=== PATIENT | male | born 1940 | race American Indian/Alaskan Native ===

== ENCOUNTER 2017-05-11 02:48 | Emergency (ER) | payer MEDICARE ==
[2017-05-11 04:03] LABS: Eosinophils % (Auto) 4.6 % (0.0-4.3); Hematocrit 39.3 % (35.5-45.6); Hemoglobin 13.5 gm/dl (11.8-15.2); Mean Corpuscular HGB Conc 34 % (32-34); Mean Corpuscular Hemoglobin 32 pg (28-32); Mean Corpuscular Volume 94 fl (84-94); Platelet Count 183 K/mm3 (140-440); Red Blood Count 4.18 M/mm3 (3.65-5.03); Red Cell Distribution Width 12.6 % (13.2-15.2); White Blood Count 4.4 K/mm3 (4.5-11.0)
[2017-05-11 04:16] LABS: Anion Gap 16 mmol/L; Blood Urea Nitrogen 9 mg/dL (9-20); Calcium 8.5 mg/dL (8.4-10.2); Carbon Dioxide 30 mmol/L (22-30); Chloride 99.9 mmol/L (98-107); Glucose 67 mg/dL (75-100); Potassium 3.8 mmol/L (3.6-5.0); Sodium 142 mmol/L (137-145)
--- NOTE | 2017-05-11 07:58 | Emergency Department Report ---
ED Lower Extremity HPI - General Chief Complaint: Wound/Laceration Stated Complaint: RT TOE PAIN Time Seen by Provider: 05/11/17 07:17 Source: patient, family Mode of arrival: Ambulatory Limitations: No Limitations - History of Present Illness Initial Comments: 77-year-old male past medical history arthritis, GERD, high cholesterol, dementia brought in by girlfriend for complaint of one month of pain between his first and second right side toes. Patient on exam is awake alert and oriented 3 cooperative able to tell me that for 1 month he has had pain between his first and second toes and has noticed thick callus skin. States he has had bunion surgery in the past. States that he wears tight fitting shoes. As his supported by his girlfriend who is at bedside who states that he has complained of pain in his toes chronically. Denies any fever or chills denies any pus drainage no difficulty ambulating. States he has not taken any medicines for the pain. States it only bothers him when he walks for a prolonged period of time. MD Complaint: foot injury Onset/Timin -: month(s) Injury: Toes: Right Severity: mild Severity scale (0 -10): 2 - Related Data Home Medications Medication Instructions Recorded Confirmed Last Taken Esomeprazole Magnesium [NexIUM] 1 cap PO DAILY 07/16/14 09/11/14 09/10/14 Levothyroxine [Synthroid] 1 tab PO DAILY 07/16/14 09/11/14 09/10/14 09:00 I TAB Rivastigmine [Exelon Patch 1 patch TRANSDERMA DAILY 07/16/14 09/11/14 09/10/14 9.5mg/24hr] Tamsulosin [Flomax] 1 cap PO DAILY 07/16/14 09/11/14 09/09/14 Tadalafil [Cialis] 1 tab PO PRN PRN 07/17/14 09/11/14 09/09/14 oxyCODONE /ACETAMINOPHEN [Percocet 5 - 325 mg PO Q6H PRN 07/17/14 09/11/1409/09 5/325 mg] Previous Rx's Medication Instructions Recorded Last Taken Type Acetaminophen [Acetaminophen TAB] 500 mg PO Q8H PRN #30 tablet 05/11/17 Unknown Rx Menthol [Gold [place] Medicated Foot] 10 gm TP BID #1 powder 05/11/17 Unknown Rx Allergies Allergy/AdvReac Type Severity Reaction Status Date / Time No Known Allergies Allergy Verified 05/11/17 03:03 ED Review of Systems ROS: Stated complaint: RT TOE PAIN Other details as noted in HPI Constitutional: denies: chills, fever Eyes: denies: eye pain, eye discharge, vision change ENT: denies: ear pain, throat pain Respiratory: denies: cough, shortness of breath, wheezing Cardiovascular: denies: chest pain, palpitations Endocrine: no symptoms reported Gastrointestinal: denies: abdominal pain, nausea, diarrhea Genitourinary: denies: urgency, dysuria Musculoskeletal: denies: back pain, joint swelling, arthralgia Skin: as per HPI. denies: rash, lesions Neurological: denies: headache, weakness, paresthesias Psychiatric: denies: anxiety, depression Hematological/Lymphatic: denies: easy bleeding, easy bruising ED Past Medical Hx - Past Medical History Hx Hypertension: Yes (NO MEDS AT THIS TIME) Hx GERD: Yes Hx Arthritis: Yes Hx Dementia: Yes Additional medical history: Hypercholesterolemia - Surgical History Past Surgical History?: Yes Additional Surgical History: hernia repair - Social History Smoking Status: Current Every Day Smoker Substance Use Type: Alcohol - Medications Home Medications: Home Medications Medication Instructions Recorded Confirmed Last Taken Type Esomeprazole Magnesium [NexIUM] 1 cap PO DAILY 07/16/14 09/11/14 09/10/14 History Levothyroxine [Synthroid] 1 tab PO DAILY 07/16/14 09/11/14 09/10/14 09:00 History I TAB Rivastigmine [Exelon Patch 1 patch TRANSDERMA DAILY 07/16/14 09/11/14 09/10/14 History 9.5mg/24hr] Tamsulosin [Flomax] 1 cap PO DAILY 07/16/14 09/11/14 09/09/14 History Tadalafil [Cialis] 1 tab PO PRN PRN 07/17/14 09/11/14 09/09/14 History oxyCODONE /ACETAMINOPHEN [Percocet 5 - 325 mg PO Q6H PRN 07/17/14 09/11/1409/09 History 5/325 mg] Acetaminophen [Acetaminophen TAB] 500 mg PO Q8H PRN #30 tablet 05/11/17 Unknown Rx Menthol [Gold [place] Medicated Foot] 10 gm TP BID #1 powder 05/11/17 Unknown Rx ED Physical Exam - General Limitations: No Limitations General appearance: alert, in no apparent distress - Head Head exam: Present: atraumatic, normocephalic - Eye Eye exam: Present: normal appearance, PERRL, EOMI - ENT ENT exam: Present: mucous membranes moist - Neck Neck exam: Present: normal inspection - Respiratory Respiratory exam: Present: normal lung sounds bilaterally. Absent: respiratory distress - Cardiovascular Cardiovascular Exam: Present: regular rate, normal rhythm. Absent: systolic murmur, diastolic murmur, rubs, gallop - GI/Abdominal GI/Abdominal exam: Present: soft, normal bowel sounds - Rectal Rectal exam: Present: deferred - Extremities Exam Extremities exam: Present: normal inspection - Expanded Lower Extremity Exam Right Upper Leg exam: Present: normal inspection, full ROM Knee exam: Present: normal inspection, full ROM Lower Leg exam: Present: normal inspection, full ROM Ankle exam: Present: normal inspection, full ROM Foot/Toe exam: Present: full ROM (range of motion toes intact), deformity ( visible bunion right great toe) Neuro vascular tendon exam: Present: no vascular compromise Gait: Positive: observed and normal 1 - Area of calloused skin, no abscess, no cellulitis, no erythema, not painful to touch. - Back Exam Back exam: Present: normal inspection - Neurological Exam Neurological exam: Present: alert, oriented X3 - Psychiatric Psychiatric exam: Present: normal affect, normal mood - Skin Skin exam: Present: warm, dry, intact, normal color. Absent: rash ED Course Vital Signs 05/11/17 03:03 Temperature 97.9 F Pulse Rate 75 Respiratory 16 Rate Blood Pressure 132/60 O2 Sat by Pulse 100 Oximetry ED Lower Extremity MDM - Lab Data Result diagrams: 05/11/17 03:39 05/11/17 03:39 - Medical Decision Making A/P: Bunion right toe, skin callus 1-podiatry referral. I placed a cushion gauze between toes with light patricia wrap for bracing for comfort 2-I advised patient to use medicated foot powder and to keep his feet dry and wear comfortable shoes with good support or sneakers instead of tight fitting shoes with rigid soles patient states he typically wears. 3- clinically there are no signs of infection on direct examination of toes, no cellulitis no abscess no hyperesthesia to touch, range of motion is intact and distal sensation is intact. good distal cap refill less than 1 second and good distal sensation all toes. 4- pt is ambulatory 5- Tylenol when necessary Critical care attestation.: If time is entered above; I have spent that time in minutes in the direct care of this critically ill patient, excluding procedure time. ED Disposition Clinical Impression: Bunion of great toe of right foot, Skin callus Disposition: TO HOME OR SELFCARE Is pt being admited?: No Does the pt Need Aspirin: No Condition: Stable Instructions: Bunion (ED) Prescriptions: Acetaminophen [Acetaminophen TAB] 500 mg PO Q8H PRN #30 tablet PRN Reason: Pain Menthol [Gold [place] Medicated Foot] 10 gm TP BID #1 powder Referrals: SHIRLEY COOK DPM [Staff Physician] - 3-5 Days [facility] [Provider Group] - 3-5 Days Forms: Accompanied Note, Work/School Release Form(ED) Time of Disposition: 08:03
[2017-05-11] MEDS ORDERED: TYLENOL PO ONE (08:05)
[2017-05-11 08:27] VITALS: BP 104/63
== END 2017-05-11 08:25 | disposition home or self-care (01) ==
LOC: ED 02:48
DX: M21.611 Bunion of right foot (principal); L84 Corns and callosities; I10 Essential (primary) hypertension; K21.9 Gastro-esophageal reflux disease without esophagitis; M19.90 Unspecified osteoarthritis, unspecified site; F03.90 Unspecified dementia, unspecified severity, without behavioral disturbance, psychotic disturbance, mood disturbance, and anxiety; E78.00 Pure hypercholesterolemia, unspecified; F17.200 Nicotine dependence, unspecified, uncomplicated
CPT/HCPCS: 36415; 80048; 82962; 85025; 99283

== ENCOUNTER 2018-07-15 00:06 | Emergency (ER) | payer MEDICARE ==
--- NOTE | 2018-07-15 01:07 | Emergency Department Report ---
ED Back Pain/Injury HPI - General Chief Complaint: Back Pain/Injury Stated Complaint: LOWER BACK PAIN Time Seen by Provider: 07/15/18 00:27 Source: patient, EMS Limitations: Physical Limitation - History of Present Illness Initial Comments: 78-year-old male presents to ED with complaints of right-sided low back pain 2 days. He denies recent fall, injury, lifting of heavy objects. Pain worse with twisting of torso, bending. Patient states he had a family member flip his mattress to see if that would improve the pain. It did not. Pt has not taken anything for pain at home. Patient denies fever, chills, dysuria, numbness, tingling, extremity weakness. Does report urinary frequency. PCP: Krys Roth MD Complaint: back pain -: Gradual, days(s) (2) Similar Symptoms Previously: No Radiation: none Severity: severe Quality: sharp, aching Consistency: constant Improves With: immobilization Worsens With: movement, walking Context: unknown Associated Symptoms: denies: weakness, numbness, difficulty urinating, incontinence, fever/chills, abdominal pain, nausea/vomiting - Related Data Home Medications Medication Instructions Recorded Confirmed Last Taken Esomeprazole Magnesium [NexIUM] 1 cap PO DAILY 07/16/14 09/11/14 09/10/14 Levothyroxine [Synthroid] 1 tab PO DAILY 07/16/14 09/11/14 09/10/14 09:00 I TAB Rivastigmine [Exelon Patch 1 patch TRANSDERMA DAILY 07/16/14 09/11/14 09/10/14 9.5mg/24hr] Tamsulosin [Flomax] 1 cap PO DAILY 07/16/14 09/11/14 09/09/14 Tadalafil [Cialis] 1 tab PO PRN PRN 07/17/14 09/11/14 09/09/14 oxyCODONE /ACETAMINOPHEN [Percocet 5 - 325 mg PO Q6H PRN 07/17/14 09/11/1409/09 5/325 mg] Previous Rx's Medication Instructions Recorded Last Taken Type Acetaminophen [Acetaminophen TAB] 500 mg PO Q8H PRN #30 tablet 05/11/17 Unknown Rx Menthol [Gold [place] Medicated Foot] 10 gm TP BID #1 powder 05/11/17 Unknown Rx Methocarbamol [Robaxin-750] 500 mg PO Q6HR PRN #20 tablet 07/15/18 Unknown Rx Naproxen [Naprosyn] 500 mg PO BID #20 tablet 07/15/18 Unknown Rx Allergies Allergy/AdvReac Type Severity Reaction Status Date / Time No Known Allergies Allergy Verified 05/11/17 03:03 ED Review of Systems ROS: Stated complaint: LOWER BACK PAIN Other details as noted in HPI Comment: All other systems reviewed and negative Constitutional: denies: chills, fever Cardiovascular: denies: chest pain Gastrointestinal: denies: abdominal pain, nausea, vomiting Genitourinary: frequency. denies: dysuria Neurological: denies: weakness, numbness, paresthesias ED Past Medical Hx - Past Medical History Hx Hypertension: Yes (NO MEDS AT THIS TIME) Hx GERD: Yes Hx Arthritis: Yes Hx Dementia: Yes Additional medical history: Hypercholesterolemia - Surgical History Additional Surgical History: hernia repair - Social History Smoking Status: Current Every Day Smoker Substance Use Type: None - Medications Home Medications: Home Medications Medication Instructions Recorded Confirmed Last Taken Type Esomeprazole Magnesium [NexIUM] 1 cap PO DAILY 07/16/14 09/11/14 09/10/14 History Levothyroxine [Synthroid] 1 tab PO DAILY 07/16/14 09/11/14 09/10/14 09:00 History I TAB Rivastigmine [Exelon Patch 1 patch TRANSDERMA DAILY 07/16/14 09/11/14 09/10/14 History 9.5mg/24hr] Tamsulosin [Flomax] 1 cap PO DAILY 07/16/14 09/11/14 09/09/14 History Tadalafil [Cialis] 1 tab PO PRN PRN 07/17/14 09/11/14 09/09/14 History oxyCODONE /ACETAMINOPHEN [Percocet 5 - 325 mg PO Q6H PRN 07/17/14 09/11/1409/09 History 5/325 mg] Acetaminophen [Acetaminophen TAB] 500 mg PO Q8H PRN #30 tablet 05/11/17 Unknown Rx Menthol [Gold [place] Medicated Foot] 10 gm TP BID #1 powder 05/11/17 Unknown Rx Methocarbamol [Robaxin-750] 500 mg PO Q6HR PRN #20 tablet 07/15/18 Unknown Rx Naproxen [Naprosyn] 500 mg PO BID #20 tablet 07/15/18 Unknown Rx ED Physical Exam - General Limitations: Physical Limitation General appearance: alert, in no apparent distress - Head Head exam: Present: atraumatic, normocephalic - Eye Eye exam: Present: normal appearance - ENT ENT exam: Present: mucous membranes moist - Neck Neck exam: Present: normal inspection, full ROM - Respiratory Respiratory exam: Present: normal lung sounds bilaterally. Absent: respiratory distress - Cardiovascular Cardiovascular Exam: Present: regular rate, normal rhythm - GI/Abdominal GI/Abdominal exam: Present: soft. Absent: tenderness - Extremities Exam Extremities exam: Present: normal inspection. Absent: tenderness - Back Exam Back exam: Present: normal inspection, paraspinal tenderness (right sided near L4-5). Absent: full ROM, vertebral tenderness - Neurological Exam Neurological exam: Present: alert, oriented X3. Absent: motor sensory deficit - Psychiatric Psychiatric exam: Present: normal affect, normal mood - Skin Skin exam: Present: warm, dry, intact, normal color ED Course Vital Signs 07/15/18 07/15/18 07/15/18 00:18 00:20 00:30 Temperature 98 F Pulse Rate 68 62 Respiratory 18 14 Rate Blood Pressure 145/49 135/57 O2 Sat by Pulse 98 100 99 Oximetry 07/15/18 07/15/18 07/15/18 00:33 00:45 01:00 Temperature Pulse Rate 62 74 Respiratory 18 14 14 Rate Blood Pressure 135/59 135/57 O2 Sat by Pulse 99 99 Oximetry 07/15/18 07/15/18 07/15/18 01:15 02:05 02:15 Temperature Pulse Rate 63 61 60 Respiratory 15 18 Rate Blood Pressure 128/61 137/68 137/62 O2 Sat by Pulse 99 100 99 Oximetry 07/15/18 07/15/18 07/15/18 02:30 02:45 03:00 Temperature Pulse Rate 57 L 67 57 L Respiratory 13 15 14 Rate Blood Pressure 144/65 159/72 137/66 O2 Sat by Pulse 100 100 99 Oximetry 07/15/18 07/15/18 07/15/18 03:15 03:30 03:45 Temperature Pulse Rate 56 L 61 63 Respiratory 12 13 11 L Rate Blood Pressure 138/63 133/60 138/63 O2 Sat by Pulse 100 99 99 Oximetry - Reevaluation(s) Reevaluation #1: 07/15/18 03:41 Patient reports back pain much improved after medication administration. ED Medical Decision Making - Lab Data Result diagrams: 07/15/18 02:02 07/15/18 02:02 - Radiology Data Radiology results: report reviewed, image reviewed - Medical Decision Making 78-year-old male with 2-day history of acute right lower back pain. Vital signs stable. Patient afebrile. No signs of urinary tract infection. Labs and x-rays normal. Likely muscle strain. Will give prescription for anti- inflammatory and muscle relaxers. Pt given return precautions and advised to follow up with PCP. - Differential Diagnosis fracture, strain, UTI, infection Critical care attestation.: If time is entered above; I have spent that time in minutes in the direct care of this critically ill patient, excluding procedure time. ED Disposition Clinical Impression: Acute lumbosacral myofascial strain Disposition: - TO HOME OR SELFCARE Is pt being admited?: No Condition: Stable Instructions: Muscle Strain (ED), Acute Low Back Pain (ED) Prescriptions: Methocarbamol [Robaxin-750] 500 mg PO Q6HR PRN #20 tablet PRN Reason: Spasms Naproxen [Naprosyn] 500 mg PO BID #20 tablet Referrals: PRIMARY CARE, [Primary Care Provider] - 3-5 Days MITCH CARRASQUILLO MD [Staff Physician] - as needed Time of Disposition: 03:45
[2018-07-15] MEDS ORDERED: TORADOL IV ONE (01:08)
[2018-07-15] MEDS ORDERED: ROBAXIN PO ONE (01:15)
[2018-07-15 01:50] LABS: Bilirubin,Urine NEG (Negative); Blood,Urine NEG (Negative); Color,Urine Straw (Yellow); Protein,Urine <15 mg/dL mg/dL (Negative); Urobilinogen,Urine < 2.0 mg/dL (<2.0)
--- NOTE | 2018-07-15 02:16 | XRay Report ---
FINAL REPORT EXAM: XR SPINE LUMBOSACRAL 2-3V HISTORY: pain TECHNIQUE: Three views of the lumbar spine were obtained. FINDINGS: There is osteoporosis. The disc heights and alignment appear normal. There is no evidence of fracture. There is endplate spurring at the L3 and L4 levels. The SI joints appear normal. The soft tissues reveal calcification of the abdominal aorta. IMPRESSION: Osteoporosis with endplate spurring at the L3 and L4 levels. No acute fracture identified.
[2018-07-15 02:35] LABS: Hematocrit 36.9 % (35.5-45.6); Hemoglobin 12.6 gm/dl (11.8-15.2); Mean Corpuscular HGB Conc 34 % (32-34); Mean Corpuscular Hemoglobin 32 pg (28-32); Mean Corpuscular Volume 94 fl (84-94); Platelet Count 157 K/mm3 (140-440); Red Blood Count 3.91 M/mm3 (3.65-5.03)
[2018-07-15 02:47] LABS: BUN/Creatinine Ratio 12; Blood Urea Nitrogen 13 mg/dL (9-20); Calcium 7.8 mg/dL (8.4-10.2); Hemolysis Index 5
[2018-07-15 03:59] VITALS: BP 138/63
[2018-07-15 04:05] LABS: Total Cells Counted 100
[2018-07-15 04:06] LABS: Basophils % (Manual) 0 % (0.0-1.8); Platelet Estimate Consistent w Auto; RBC Morphology Normal
== END 2018-07-15 04:38 | disposition home or self-care (01) ==
LOC: ED 00:06
DX: S39.012A Strain of muscle, fascia and tendon of lower back, initial encounter (principal); I10 Essential (primary) hypertension; K21.9 Gastro-esophageal reflux disease without esophagitis; M19.90 Unspecified osteoarthritis, unspecified site; F17.200 Nicotine dependence, unspecified, uncomplicated; E78.00 Pure hypercholesterolemia, unspecified; X58.XXXA Exposure to other specified factors, initial encounter; Y93.89 Activity, other specified; Y92.89 Other specified places as the place of occurrence of the external cause; Y99.8 Other external cause status
CPT/HCPCS: 36415; 72100; 80048; 81001; 85007; 85025; 96374; 99284; J1885